=== PATIENT | male | born 1930 | race Caucasian/White ===

== ENCOUNTER 2022-04-30 10:43 | Observation (INO) | payer MEDICARE, BC ==
--- NOTE | 2022-04-30 09:34 | HP ---
DATE OF SURGERY: 04/30/2022 HISTORY OF PRESENT ILLNESS: The patient is an 89-year-old had some vomiting and nausea, not really much pain, worse the past month. He has a pacemaker. He denied any prior abdominal surgery. PAST MEDICAL HISTORY: Gastroesophageal reflux disease, hypothyroidism, hypertension, arthritis, diabetes, coronary artery disease, benign prostatic hypertrophy. PAST SURGICAL HISTORY: History of had back surgery, pacemaker and coronary stents in the past. He denied any abdominal surgery. MEDICATIONS: Atorvastatin, clopidogrel, Fenofibrate, finasteride, hydrocodone, insulin, isosorbide mononitrate, Levemir, Levothyroxine, metoprolol, losartan, omeprazole, Ozempic, Tamsulosin, Ondansetron, aspirin. ALLERGIES: AMOXICILLIN. FAMILY HISTORY: Negative in regards to this problem. SOCIAL HISTORY: No smoking or alcohol abuse. REVIEW OF SYSTEMS: Fourteen systems reviewed. No chest pain or palpitations. Other systems negative or noncontributory as above and per preadmission questionnaire. PHYSICAL EXAMINATION: GENERAL: No acute distress. HEENT: Sclerae nonicteric. NECK: No JVD. CHEST: Equal excursion, nonlabored breathing. CVS: Regular rate and rhythm. ABDOMEN: Soft. No peritoneal signs. EXTREMITIES: No significant edema. NEURO: Alert, oriented, moving extremities symmetrically. PSYCH: Appropriate mood and affect. IMPRESSION: Recurrent nausea and vomiting. He was noted to have cholelithiasis on ultrasound. Acute exacerbation of chronic cholecystitis, symptomatic cholelithiasis. I feel the patient will benefit from cholecystectomy. Risks and benefits explained the procedure in detail including but not limited to bleeding or infection, risk of trocar injury or hernia, risk of bowel, bladder or blood vessel injury, risk of bile leak, bile duct injury, retained stone or sludge possibly requiring further procedure either open or ERCP, general risk of anesthesia, deep venous thrombosis, pulmonary embolism, pneumonia, perioperative risk of aches, pains, bloating, constipation and/or loose stools possibly even chronic in nature. He understands and agrees to the planned procedure, will proceed with laparoscopic cholecystectomy with possible open as an outpatient.
[~2022-04-30 10:43] MED LIST: CLINDAMYCIN-D5W 900 MG/50 ML*** 900 MG/50 ML BAG IV SCH; Lactated Ringers 1,000 ML IV ONE; Lactated Ringers 1,000 ML IV SCH; Levofloxacin 500MG/100ML D5W 500 MG/100 ML BAG IV SCH; Sensorcaine 0.25% 10 ML ONE
[2022-04-30] MEDS ORDERED: Levofloxacin 500MG/100ML D5W 500 MG/100 ML BAG IV ONE (11:11)
[2022-04-30] MEDS ORDERED: Lactated Ringers 1,000 ML IV ONE (11:11)
[2022-04-30] MEDS ORDERED: CLINDAMYCIN-D5W 900 MG/50 ML*** 900 MG/50 ML BAG IV ONE (11:11)
[2022-04-30 11:39] LABS: Absolute Neutrophil Ct (ANC) 10.48 x10^3/uL (1.4-6.9); Basophil (Absolute #) 0.14 x10^3/uL (0-0.4); Eosinophil % 2.6 % (0.00-5.0); Eosinophil (Absolute #) 0.42 x10^3/uL (0-0.5); Hematocrit 38.4 % (42-50); Hemoglobin 12.2 g/dL (12.5-18.0); Lymphocyte (Absolute #) 3.16 x10^3/uL (1.0-4.6); Lymphocytes % 19.6 % (24.0-44.0); Mean Corpuscular Hemoglobin 30.8 pg (26-32); Mean Corpuscular Hgb Concent. 31.8 g/dL (32-36); Mean Platelet Volume 9.1 fL (7.5-11.0); Monocyte (Absolute #) 1.42 x10^3/uL (0.0-1.3); Monocytes % 8.8 % (0.0-12.0); Neutrophil % 64.8 % (36.0-66.0); Platelet Count 327 x10^3/uL (150-450); Red Blood Count 3.96 x10^6/uL (4.1-5.6); Red Cell Distribution Width 15.5 % (11.5-14.0); White Blood Count 16.2 x10^3/uL (4.0-10.5)
[2022-04-30 11:50] LABS: ANION GAP 11.9 MEQ/L (5-15); Calcium 9.3 mg/dL (8.4-10.2); Creatinine 1 1.35 mg/dL (0.66-1.25); EST GLOMERULAR FILTRATION RATE 52.9 ML/MIN; Potassium 4.6 mmol/L (3.5-5.1)
[2022-04-30] MEDS ORDERED: OFIRMEV 100 ML IV ONE (14:03)
[2022-04-30] MEDS ORDERED: Pre-Attached Lta Kit TP ONE (14:03)
[2022-04-30] MEDS ORDERED: DIPRIVAN 200 MG/20 ML IV ONE (14:06)
[2022-04-30] MEDS ORDERED: PHENYLEPHRINE HCL ONE (14:06)
[2022-04-30] MEDS ORDERED: Quelicin Fliptop 200 MG/10 ML ONE (14:06)
[2022-04-30] MEDS ORDERED: Xylocaine-Mpf 2% 5 Ml Vial ONE (14:06)
[2022-04-30] MEDS ORDERED: Zofran 4 MG/2 ML VIAL ONE (14:06)
[2022-04-30] MEDS ORDERED: Zemuron 100 MG/10 ML ONE (14:06)
[2022-04-30] MEDS ORDERED: Decadron 4 MG INJ ONE (14:06)
[2022-04-30] MEDS ORDERED: SUBLIMAZE 100 MCG/2 ML ONE ×2 (14:07→15:59)
[2022-04-30] MEDS ORDERED: TYLENOL 325 MG PO PRN (16:45)
[2022-04-30] MEDS ORDERED: Zofran 4 MG/2 ML VIAL IV PRN (16:45)
[2022-04-30 16:50] LABS: INFLUENZA A NEGATIVE (NEGATIVE); INFLUENZA B NEGATIVE (NEGATIVE); RESPIRATORY SYNCTIAL VIRUS NEGATIVE (Negative); SARS-CoV-2 Xpert Express NEGATIVE (NEGATIVE)
[2022-04-30] MEDS ORDERED: NORCO 5/325 MG PO PRN (17:01)
[2022-04-30] MEDS ORDERED: MORPHINE SULFATE 2 MG INJ IV PRN ×2 (17:05→17:15)
--- NOTE | 2022-04-30 17:08 | PCM.HP ---
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 He was seen on the floor, currently on a nasal canula and states his breathing is much improved, he has some mild pain in the abdomen but is alert, oriented and answering questions appropriately, no chest pain, no shortness of breath currently. - Review of Systems Constitutional: No Fever, No Chills Respiratory: Short Of Breath (improving) Cardiac: No Chest Pain, No Edema, No Syncope Abdominal/Gastrointestinal: Abdominal Pain (postop), No Nausea, No Vomiting, No Diarrhea Genitourinary Symptoms: No Symptoms Skin: No Rash Medications & Allergies Home Medications: Home Medication List Aspirin [Low Dose Aspirin EC] 81 mg PO DAILY 04/25/22 [History Confirmed 04/30/22] Atorvastatin Calcium [Lipitor 40Mg] 40 mg PO DAILY 04/25/22 [History Confirmed 04/30/22] Clopidogrel Bisulfate [Clopidogrel] 75 mg PO DAILY 04/25/22 [History Confirmed 04/30/22] Fenofibrate Nanocrystallized [Tricor] 145 mg PO DAILY 04/25/22 [History Confirmed 04/30/22] Finasteride 5 mg [Proscar 5 MG] 5 mg PO DAILY 04/25/22 [History Confirmed 04/30/22] Hydrocodone/Acetaminophen [Hydrocodone-Acetamin 10-325 mg] 1 each PO Q6HPRN PRN 04/25/22 [History Confirmed 04/30/22] Insulin Aspart [Insulin Aspart Flexpen] 0 unit SQ UD 04/25/22 [History Confirmed 04/30/22] Insulin Detemir [Levemir] 50 unit SQ BID 04/25/22 [History Confirmed 04/30/22] Isosorbide Mononitrate [Isosorbide Mononitrate ER] 30 mg PO DAILY 04/25/22 [History Confirmed 04/30/22] Levothyroxine Sodium [Levothyroxine] 125 mcg PO DAILY 04/25/22 [History Confirmed 04/30/22] Losartan Potassium [Cozaar] 25 mg PO DAILY 04/25/22 [History Confirmed 04/30/22] Metoprolol Tartrate 25 mg [Lopressor 25MG Tab] 25 mg PO BID 04/25/22 [History Confirmed 04/30/22] Omeprazole 20 mg PO DAILY 04/25/22 [History Confirmed 04/30/22] Ondansetron [Ondansetron Odt ] 4 mg PO Q6H PRN 04/25/22 [History Confirmed 04/30/22] Semaglutide [Ozempic] 0.5 mg SQ WEEKLY 04/25/22 [History Confirmed 04/30/22] Tamsulosin HCl 0.4 mg [Flomax 0.4 MG] 0.4 mg PO DAILY 04/25/22 [History Confirmed 04/30/22] Hydrocodone/Acetaminophen [Hydrocodone-Acetamin 5-325 mg] 1 tab PO Q4HPRN PRN #20 tablet MDD 6 04/30/22 [Rx] Allergies/Adverse Reactions: Allergies Allergy/AdvReac Type Severity Reaction Status Date / Time amoxicillin Allergy Severe Hives Verified 04/30/22 11:06 - Past Medical History Past Medical History: Yes Neurological History: No Pertinent History ENT History: No Pertinent History Cardiac History: High Cholesterol, Hypertension, Other Respiratory History: No Pertinent History Endocrine Medical History: Diabetes Type II, Hypothyroidism Musculoskelatal History: No Pertinent History GI Medical History: GERD History: No Pertinent History Pyscho-Social History: No Pertinent History Male Reproductive Disorders: No Pertinent History Comment: pacemaker - Past Surgical History Past Surgical History: Yes Neuro Surgical History: No Pertinent History Cardiac History: Cardiac Catheterization, Pacemaker Respiratory Surgery: No Pertinent History GI Surgical History: No Pertinent History Genitourinary Surgical Hx: No Pertinent History Musculskeletal Surgical Hx: Other Male Surgical History: No Pertinent History Other Surgical History: back surgery - Social History Smoking Status: Former smoker Alcohol: None Drug Use: none - Physical Exam Vital Signs: Vital Signs - 24 hr Temp Pulse Resp BP Pulse Ox 04/30/22 16:54 98 04/30/22 16:52 97.5 F 68 19 169/75 99 04/30/22 11:32 97.5 F 66 18 149/59 97 04/30/22 11:15 97.5 F 66 18 149/59 97 General Appearance: no apparent distress Neurologic Exam: alert, oriented x 3, cooperative Respiratory Exam: normal breath sounds, lungs clear, diminished breath sounds, No respiratory distress, No accessory muscle use Cardiovascular Exam: regular rate/rhythm, normal heart sounds, normal peripheral pulses Gastrointestinal/Abdomen Exam: soft, normal bowel sounds, other (dressings clean, dry, intact), No tenderness, No mass Extremity Exam: normal inspection, normal range of motion, pelvis stable Skin Exam: normal color, warm, dry, No rash Results - Labs Lab/Micro Results: Lab Results-Last 24 Hours 04/30/22 04/30/22 04/30/22 Range/Units 11:00 11:00 11:06 WBC 16.2 H (4.0-10.5) x10^3/uL RBC 3.96 L (4.1-5.6) x10^6/uL Hgb 12.2 L (12.5-18.0) g/dL Hct 38.4 L (42-50) % MCV 97.0 (78-100) fL MCH 30.8 (26-32) pg MCHC 31.8 L (32-36) g/dL RDW 15.5 H (11.5-14.0) % Plt Count 327 (150-450) x10^3/uL MPV 9.1 (7.5-11.0) fL Gran % 64.8 (36.0-66.0) % Immature Gran % (Auto) 3.3 H (0.00-0.4) % Nucleat RBC Rel Count 0.0 (0.00-0.1) % Eos # (Auto) 0.42 (0-0.5) x10^3/uL Immature Gran # (Auto) 0.54 H (0.00-0.03) x10^3u/L Absolute Lymphs (auto) 3.16 (1.0-4.6) x10^3/uL Absolute Monos (auto) 1.42 H (0.0-1.3) x10^3/uL Absolute Nucleated RBC 0.00 (0.00-0.01) x10^3u/L Lymphocytes % 19.6 L (24.0-44.0) % Monocytes % 8.8 (0.0-12.0) % Eosinophils % 2.6 (0.00-5.0) % Basophils % 0.9 (0.0-0.4) % Absolute Granulocytes 10.48 H (1.4-6.9) x10^3/uL Basophils # 0.14 (0-0.4) x10^3/uL Sodium 138 (137-145) mmol/L Potassium 4.6 (3.5-5.1) mmol/L Chloride 104 (98-107) mmol/L Carbon Dioxide 26 (22-30) mmol/L Anion Gap 11.9 (5-15) MEQ/L BUN 23 H (9-20) mg/dL Creatinine 1.35 H (0.66-1.25) mg/dL Estimated GFR 52.9 ML/MIN Glucose 89 (74-106) mg/dL POC Glucometer 88 (74 to 106) mg/dL Calcium 9.3 (8.4-10.2) mg/dL Influenza Type A Ag (NEGATIVE) Influenza Type B Ag (NEGATIVE) RSV (PCR) (Negative) SARS-CoV-2 (PCR) (NEGATIVE) 04/30/22 04/30/22 04/30/22 Range/Units 12:24 15:11 16:08 WBC (4.0-10.5) x10^3/uL RBC (4.1-5.6) x10^6/uL Hgb (12.5-18.0) g/dL Hct (42-50) % MCV (78-100) fL MCH (26-32) pg MCHC (32-36) g/dL RDW (11.5-14.0) % Plt Count (150-450) x10^3/uL MPV (7.5-11.0) fL Gran % (36.0-66.0) % Immature Gran % (Auto) (0.00-0.4) % Nucleat RBC Rel Count (0.00-0.1) % Eos # (Auto) (0-0.5) x10^3/uL Immature Gran # (Auto) (0.00-0.03) x10^3u/L Absolute Lymphs (auto) (1.0-4.6) x10^3/uL Absolute Monos (auto) (0.0-1.3) x10^3/uL Absolute Nucleated RBC (0.00-0.01) x10^3u/L Lymphocytes % (24.0-44.0) % Monocytes % (0.0-12.0) % Eosinophils % (0.00-5.0) % Basophils % (0.0-0.4) % Absolute Granulocytes (1.4-6.9) x10^3/uL Basophils # (0-0.4) x10^3/uL Sodium (137-145) mmol/L Potassium (3.5-5.1) mmol/L Chloride (98-107) mmol/L Carbon Dioxide (22-30) mmol/L Anion Gap (5-15) MEQ/L BUN (9-20) mg/dL Creatinine (0.66-1.25) mg/dL Estimated GFR ML/MIN Glucose (74-106) mg/dL POC Glucometer 81 87 (74 to 106) mg/dL Calcium (8.4-10.2) mg/dL Influenza Type A Ag NEGATIVE (NEGATIVE) Influenza Type B Ag NEGATIVE (NEGATIVE) RSV (PCR) NEGATIVE (Negative) SARS-CoV-2 (PCR) NEGATIVE (NEGATIVE) - Radiology Impressions Radiology Exams & Impressions: Radiology Procedures Category Date Time Status CHEST 1 VIEW (PORTABLE) Routine Exams 04/30/22 16:44 Ordered - Other Procedures and Tests Respiratory Therapy 04/30/22 16:05 BiPap/CPAP STAT 04/30/22 16:52 Oxygen Nasal Cannula 3 lpm Assessment/Plan (1) Acute respiratory distress Current Visit: Yes Status: Acute Assessment & Plan: stable on nasal cannula, chest xray pending. no wheezing or crackles on exam. will monitor closely tonight but suspect continued improval with time. Code(s): R06.03 - ACUTE RESPIRATORY DISTRESS (2) Prolonged emergence from general anesthesia Current Visit: Yes Status: Acute Code(s): T88.59XA - OTHER COMPLICATIONS OF ANESTHESIA, INITIAL ENCOUNTER (3) S/P cholecystectomy Current Visit: Yes Status: Acute Code(s): Z90.49 - ACQUIRED ABSENCE OF OTHER SPECIFIED PARTS OF DIGESTIVE TRACT (4) Type 2 diabetes mellitus Current Visit: Yes Status: Acute Assessment & Plan: sliding scale coverage ordered, currently on levemir 50U bid at home, will give 10 units lantus this evening as he is ordered regular diet per surgeon (5) Coronary artery disease Current Visit: Yes Status: Acute Assessment & Plan: continue beta bobby and aspirin/plavix Code(s): I25.10 - ATHSCL HEART DISEASE OF [place] CORONARY ARTERY W/O ANG PCTRS
--- NOTE | 2022-04-30 17:17 | XRAY ---
Indication: Postop hypoventilation. Comparison: None Portable chest demonstrates mild left infrahilar infiltrate versus atelectasis and minimal right midlung discoid atelectasis. Remaining heart and lungs unremarkable with left pacemaker. Bony thorax intact with osteopenia, degenerative changes, and partially visualized epidural stimulator leads.
[2022-04-30] MEDS: NORCO 5/325 MG PO PRN (19:22)
[2022-04-30] MEDS: Lopressor 25MG Tab PO SCH (21:19)
[2022-04-30] MEDS: HUMALOG SQ PRN ×2 (21:41→21:48)
[2022-05-01] MEDS: NORCO 5/325 MG PO PRN ×4 (02:48→23:24)
[2022-05-01 05:17] LABS: Absolute Neutrophil Ct (ANC) 16.68 x10^3/uL (1.4-6.9); Basophil (Absolute #) 0.08 x10^3/uL (0-0.4); Eosinophil % 0.2 % (0.00-5.0); Eosinophil (Absolute #) 0.04 x10^3/uL (0-0.5); Hematocrit 34.6 % (42-50); Lymphocyte (Absolute #) 2.24 x10^3/uL (1.0-4.6); Lymphocytes % 10.7 % (24.0-44.0); Mean Cell Volume 97.5 fL (78-100); Mean Corpuscular Hgb Concent. 31.8 g/dL (32-36); Mean Platelet Volume 9.3 fL (7.5-11.0); Monocyte (Absolute #) 1.56 x10^3/uL (0.0-1.3); Monocytes % 7.4 % (0.0-12.0); Neutrophil % 79.4 % (36.0-66.0); Platelet Count 321 x10^3/uL (150-450); Red Blood Count 3.55 x10^6/uL (4.1-5.6); Red Cell Distribution Width 15.5 % (11.5-14.0)
[2022-05-01 05:52] LABS: ANION GAP 10.2 MEQ/L (5-15); BILIRUBIN,TOTAL 0.6 mg/dL (0.2-1.3); Calcium 8.5 mg/dL (8.4-10.2); Creatinine 1 1.23 mg/dL (0.66-1.25); EST GLOMERULAR FILTRATION RATE 58.9 ML/MIN; MAGNESIUM 1.7 mg/dL (1.6-2.3); Potassium 4.6 mmol/L (3.5-5.1); Total Protein 6.3 g/dL (6.3-8.2)
[2022-05-01 06:00] LABS: Slide Review 1 YES
--- NOTE | 2022-05-01 08:36 | OP ---
SURGERY DATE/TIME: 04/30/2022 2157 PREOPERATIVE DIAGNOSIS: Acute exacerbation of chronic cholecystitis, intractable nausea and vomiting, cholelithiasis. POSTOPERATIVE DIAGNOSIS: Mild chronic cholecystitis, cholelithiasis. PROCEDURE: Laparoscopic cholecystectomy. SURGEON: Dr. Tres Shearer. ANESTHESIA: General. ESTIMATED BLOOD LOSS: Minimal. INDICATIONS: As noted above. Risks and benefits explained in detail but not limited to and consent obtained. DESCRIPTION OF PROCEDURE AND FINDINGS: The patient was taken to the operating room. General anesthesia induced. Prepped and draped in the usual sterile fashion. After official time out and no disagreement with planned procedure, a transverse incision made at the supraumbilical area. Fascia grasped and pulled upward. Veress needle inserted and tested with saline. Pneumoperitoneum accomplished insufflating opening pressure of 0-15. A 5 mm bladeless port and camera were inserted without difficulty followed by two - 5 mm right upper quadrant ports and 11 mm epigastric port. The gallbladder is grasped. It had some mild chronic inflammatory reaction. Dissected posterior lateral to anterior fashion. Slowly and carefully the cystic duct, infundibular area, main cystic artery isolated until critical view obtained both anteriorly and posteriorly. Once this is accomplished, the cystic duct and cystic artery clipped x3 and divided in the usual fashion. The gallbladder slowly and carefully dissected free from its dense attachment to liver bed staying directly on the gallbladder wall clipping additional oozing side branches off the cystic artery and cystic vein directly on the gallbladder wall as necessary. Just prior to releasing from final attachments to the anterior edge of the liver, one of the graspers tore a small pinhole in the gallbladder spilling a small amount of bile. There were no visible stone spillage. The gallbladder was suctioned free. Just prior to releasing the final attachments to anterior edge of the liver, liver bed re-inspected. Clips noted in place in cystic duct and cystic artery stumps. No signs of any active or bile leakage from the liver bed itself. The clips were noted to be in place on the cystic duct and cystic artery stump. The gallbladder was released from its final attachments to the anterior edge of the liver, placed in the provided sac, pulled up into the epigastric wound where regarding the stones it was necessary to slightly enlarge the fascial defect with a clamp to allow the gallbladder, stones and bag to be pulled free and passed off. This fascial defect closed with puncture closure device with #1 Vicryl. Copious amount of irrigation accomplished lateral to the liver and subhepatic space irrigating clear. The liver bed re-inspected. Clips noted in place cystic duct and cystic artery stumps. No signs of any active bleeding or bile leakage. It was felt there was no need for drain placement. The liver itself looked smooth with no obvious abnormal nodules. The superficial anatomy of the abdomen was fairly unremarkable. No signs of any other gross causes of his nausea or vomiting. Copious amount of irrigation accomplished lateral to the liver and subhepatic space irrigating clear. Pneumoperitoneum decompressed. The wound irrigated out. Skin incision closed with 4-0 Vicryl. Steri-Strips and sterile dressing applied. The patient tolerated the procedure well. There were no immediate complications. Findings discussed with the family out in the waiting area. Anesthesia is working on waking the patient up at this time. Please see the anesthesia notes.
--- NOTE | 2022-05-01 08:48 | PCM.NOTE ---
Date and Time: 05/01/22840 Subjective Assessment: Pt started c/o chest pain last night, then again this morning. 6-05/13. Had few episodes of diaphoresis. Breathing is good this morning. Abd is sore, but doing ok on meds. Pt is ying po. Is urinating "like usual," has some urinary issues and appt is set up with urology. Has not passed flatus. - Review of Systems Constitutional: No Fever Ears, Nose, & Throat: Nose Congestion Respiratory: Cough (for the past 1 mo) Cardiac: Chest Pain Abdominal/Gastrointestinal: Nausea Objective Exam General Appearance: no apparent distress, alert Neurologic Exam: oriented x 3, cooperative Skin Exam: normal color, warm, dry, No rash Wound Assessment: Skin/Wound Assessment Wound/Incision Assessment Start: 04/30/22 19:32 Text: Status: Active Freq: Q6H Protocol: Document 05/01/22 02:00 JUDITH (Rec: 05/01/22 02:50 JUDITH [id number]) Wound/Incision Assessment Lower Abdomen Wound Assessment Shift Assessment Wound Type Incision Wound Stage Non Pressure Wound Dressing Status Dry & Intact Drainage Amount None Primary Dressing Gauze Pads Secondary Dressing TEGADERM Comment 4 PUNCTURE SITES NOTED FROM SURGERY Wound Photo Photo Taken No Neck Exam: normal inspection Respiratory Exam: normal breath sounds, lungs clear, No crackles/rales, No rhonchi, No wheezing Cardiovascular Exam: regular rate/rhythm, normal heart sounds, No murmur Gastrointestinal/Abdomen Exam: soft, normal bowel sounds, distention, other (surgical laparoscopic wounds covered; dressings are clean and dry.), No tenderness, No mass, No guarding, No rebound Extremity Exam: normal inspection Back Exam: normal inspection, No rash OBJECTIVE DATA Vital Signs: Vital Signs - 24 hr Temp Pulse Resp BP Pulse Ox 05/01/22 08:00 96.4 F 68 19 152/62 94 L 05/01/22 07:44 97 05/01/22 04:00 68 05/01/22 03:22 97.1 F 66 16 165/60 97 05/01/22 00:01 79 05/01/22 00:00 98.8 F 67 22 158/55 97 04/30/22 20:31 63 154/76 04/30/22 20:00 69 04/30/22 19:05 98.0 F 69 18 169/75 100 04/30/22 18:54 99 04/30/22 16:54 98 04/30/22 16:52 97.5 F 68 19 169/75 99 04/30/22 11:32 97.5 F 66 18 149/59 97 04/30/22 11:15 97.5 F 66 18 149/59 97 Pain Assessment - Last Documented Pain Intensity 7 Pain Scale Used 0-10 Pain Scale Intake and Output: Intake & Output 04/28/22 04/29/22 04/30/22 05/01/22 11:59 11:59 11:59 11:59 Intake Total 0 0 360 Balance 0 0 360 Weight 91.3 kg 76.6 kg Lab Results: Lab Results-Last 24 Hours 04/30/22 04/30/22 04/30/22 Range/Units 11:00 11:00 11:06 WBC 16.2 H (4.0-10.5) x10^3/uL RBC 3.96 L (4.1-5.6) x10^6/uL Hgb 12.2 L (12.5-18.0) g/dL Hct 38.4 L (42-50) % MCV 97.0 (78-100) fL MCH 30.8 (26-32) pg MCHC 31.8 L (32-36) g/dL RDW 15.5 H (11.5-14.0) % Plt Count 327 (150-450) x10^3/uL MPV 9.1 (7.5-11.0) fL Gran % 64.8 (36.0-66.0) % Immature Gran % (Auto) 3.3 H (0.00-0.4) % Nucleat RBC Rel Count 0.0 (0.00-0.1) % Eos # (Auto) 0.42 (0-0.5) x10^3/uL Immature Gran # (Auto) 0.54 H (0.00-0.03) x10^3u/L Absolute Lymphs (auto) 3.16 (1.0-4.6) x10^3/uL Absolute Monos (auto) 1.42 H (0.0-1.3) x10^3/uL Absolute Nucleated RBC 0.00 (0.00-0.01) x10^3u/L Lymphocytes % 19.6 L (24.0-44.0) % Monocytes % 8.8 (0.0-12.0) % Eosinophils % 2.6 (0.00-5.0) % Basophils % 0.9 (0.0-0.4) % Absolute Granulocytes 10.48 H (1.4-6.9) x10^3/uL Basophils # 0.14 (0-0.4) x10^3/uL Sodium 138 (137-145) mmol/L Potassium 4.6 (3.5-5.1) mmol/L Chloride 104 (98-107) mmol/L Carbon Dioxide 26 (22-30) mmol/L Anion Gap 11.9 (5-15) MEQ/L BUN 23 H (9-20) mg/dL Creatinine 1.35 H (0.66-1.25) mg/dL Estimated GFR 52.9 ML/MIN Glucose 89 (74-106) mg/dL POC Glucometer 88 (74 to 106) mg/dL Calcium 9.3 (8.4-10.2) mg/dL Magnesium (1.6-2.3) mg/dL Total Bilirubin (0.2-1.3) mg/dL AST (17-59) U/L ALT (0-50) U/L Alkaline Phosphatase (38-126) U/L Troponin I (0.000-0.034) ng/mL Serum Total Protein (6.3-8.2) g/dL Albumin (3.5-5.0) g/dL Prealbumin (17.6-36.0) mg/dL Influenza Type A Ag (NEGATIVE) Influenza Type B Ag (NEGATIVE) RSV (PCR) (Negative) SARS-CoV-2 (PCR) (NEGATIVE) Slides for Path Review 04/30/22 04/30/22 04/30/22 Range/Units 12:24 15:11 16:08 WBC (4.0-10.5) x10^3/uL RBC (4.1-5.6) x10^6/uL Hgb (12.5-18.0) g/dL Hct (42-50) % MCV (78-100) fL MCH (26-32) pg MCHC (32-36) g/dL RDW (11.5-14.0) % Plt Count (150-450) x10^3/uL MPV (7.5-11.0) fL Gran % (36.0-66.0) % Immature Gran % (Auto) (0.00-0.4) % Nucleat RBC Rel Count (0.00-0.1) % Eos # (Auto) (0-0.5) x10^3/uL Immature Gran # (Auto) (0.00-0.03) x10^3u/L Absolute Lymphs (auto) (1.0-4.6) x10^3/uL Absolute Monos (auto) (0.0-1.3) x10^3/uL Absolute Nucleated RBC (0.00-0.01) x10^3u/L Lymphocytes % (24.0-44.0) % Monocytes % (0.0-12.0) % Eosinophils % (0.00-5.0) % Basophils % (0.0-0.4) % Absolute Granulocytes (1.4-6.9) x10^3/uL Basophils # (0-0.4) x10^3/uL Sodium (137-145) mmol/L Potassium (3.5-5.1) mmol/L Chloride (98-107) mmol/L Carbon Dioxide (22-30) mmol/L Anion Gap (5-15) MEQ/L BUN (9-20) mg/dL Creatinine (0.66-1.25) mg/dL Estimated GFR ML/MIN Glucose (74-106) mg/dL POC Glucometer 81 87 (74 to 106) mg/dL Calcium (8.4-10.2) mg/dL Magnesium (1.6-2.3) mg/dL Total Bilirubin (0.2-1.3) mg/dL AST (17-59) U/L ALT (0-50) U/L Alkaline Phosphatase (38-126) U/L Troponin I (0.000-0.034) ng/mL Serum Total Protein (6.3-8.2) g/dL Albumin (3.5-5.0) g/dL Prealbumin (17.6-36.0) mg/dL Influenza Type A Ag NEGATIVE (NEGATIVE) Influenza Type B Ag NEGATIVE (NEGATIVE) RSV (PCR) NEGATIVE (Negative) SARS-CoV-2 (PCR) NEGATIVE (NEGATIVE) Slides for Path Review 04/30/22 04/30/22 04/30/22 Range/Units 17:44 19:49 19:55 WBC (4.0-10.5) x10^3/uL RBC (4.1-5.6) x10^6/uL Hgb (12.5-18.0) g/dL Hct (42-50) % MCV (78-100) fL MCH (26-32) pg MCHC (32-36) g/dL RDW (11.5-14.0) % Plt Count (150-450) x10^3/uL MPV (7.5-11.0) fL Gran % (36.0-66.0) % Immature Gran % (Auto) (0.00-0.4) % Nucleat RBC Rel Count (0.00-0.1) % Eos # (Auto) (0-0.5) x10^3/uL Immature Gran # (Auto) (0.00-0.03) x10^3u/L Absolute Lymphs (auto) (1.0-4.6) x10^3/uL Absolute Monos (auto) (0.0-1.3) x10^3/uL Absolute Nucleated RBC (0.00-0.01) x10^3u/L Lymphocytes % (24.0-44.0) % Monocytes % (0.0-12.0) % Eosinophils % (0.00-5.0) % Basophils % (0.0-0.4) % Absolute Granulocytes (1.4-6.9) x10^3/uL Basophils # (0-0.4) x10^3/uL Sodium (137-145) mmol/L Potassium (3.5-5.1) mmol/L Chloride (98-107) mmol/L Carbon Dioxide (22-30) mmol/L Anion Gap (5-15) MEQ/L BUN (9-20) mg/dL Creatinine (0.66-1.25) mg/dL Estimated GFR ML/MIN Glucose (74-106) mg/dL POC Glucometer 126 H (74 to 106) mg/dL Calcium (8.4-10.2) mg/dL Magnesium (1.6-2.3) mg/dL Total Bilirubin (0.2-1.3) mg/dL AST (17-59) U/L ALT (0-50) U/L Alkaline Phosphatase (38-126) U/L Troponin I < 0.012 (0.000-0.034) ng/mL Serum Total Protein (6.3-8.2) g/dL Albumin (3.5-5.0) g/dL Prealbumin 17.70 (17.6-36.0) mg/dL Influenza Type A Ag (NEGATIVE) Influenza Type B Ag (NEGATIVE) RSV (PCR) (Negative) SARS-CoV-2 (PCR) (NEGATIVE) Slides for Path Review 04/30/22 04/30/22 05/01/22 Range/Units 21:16 22:25 01:30 WBC (4.0-10.5) x10^3/uL RBC (4.1-5.6) x10^6/uL Hgb (12.5-18.0) g/dL Hct (42-50) % MCV (78-100) fL MCH (26-32) pg MCHC (32-36) g/dL RDW (11.5-14.0) % Plt Count (150-450) x10^3/uL MPV (7.5-11.0) fL Gran % (36.0-66.0) % Immature Gran % (Auto) (0.00-0.4) % Nucleat RBC Rel Count (0.00-0.1) % Eos # (Auto) (0-0.5) x10^3/uL Immature Gran # (Auto) (0.00-0.03) x10^3u/L Absolute Lymphs (auto) (1.0-4.6) x10^3/uL Absolute Monos (auto) (0.0-1.3) x10^3/uL Absolute Nucleated RBC (0.00-0.01) x10^3u/L Lymphocytes % (24.0-44.0) % Monocytes % (0.0-12.0) % Eosinophils % (0.00-5.0) % Basophils % (0.0-0.4) % Absolute Granulocytes (1.4-6.9) x10^3/uL Basophils # (0-0.4) x10^3/uL Sodium (137-145) mmol/L Potassium (3.5-5.1) mmol/L Chloride (98-107) mmol/L Carbon Dioxide (22-30) mmol/L Anion Gap (5-15) MEQ/L BUN (9-20) mg/dL Creatinine (0.66-1.25) mg/dL Estimated GFR ML/MIN Glucose (74-106) mg/dL POC Glucometer 256 H (74 to 106) mg/dL Calcium (8.4-10.2) mg/dL Magnesium (1.6-2.3) mg/dL Total Bilirubin (0.2-1.3) mg/dL AST (17-59) U/L ALT (0-50) U/L Alkaline Phosphatase (38-126) U/L Troponin I < 0.012 0.014 (0.000-0.034) ng/mL Serum Total Protein (6.3-8.2) g/dL Albumin (3.5-5.0) g/dL Prealbumin (17.6-36.0) mg/dL Influenza Type A Ag (NEGATIVE) Influenza Type B Ag (NEGATIVE) RSV (PCR) (Negative) SARS-CoV-2 (PCR) (NEGATIVE) Slides for Path Review 05/01/22 05/01/22 05/01/22 Range/Units 04:30 04:30 04:30 WBC 21.0 H (4.0-10.5) x10^3/uL RBC 3.55 L (4.1-5.6) x10^6/uL Hgb 11.0 L (12.5-18.0) g/dL Hct 34.6 L (42-50) % MCV 97.5 (78-100) fL MCH 31.0 (26-32) pg MCHC 31.8 L (32-36) g/dL RDW 15.5 H (11.5-14.0) % Plt Count 321 (150-450) x10^3/uL MPV 9.3 (7.5-11.0) fL Gran % 79.4 H (36.0-66.0) % Immature Gran % (Auto) 1.9 H (0.00-0.4) % Nucleat RBC Rel Count 0.0 (0.00-0.1) % Eos # (Auto) 0.04 (0-0.5) x10^3/uL Immature Gran # (Auto) 0.39 H (0.00-0.03) x10^3u/L Absolute Lymphs (auto) 2.24 (1.0-4.6) x10^3/uL Absolute Monos (auto) 1.56 H (0.0-1.3) x10^3/uL Absolute Nucleated RBC 0.00 (0.00-0.01) x10^3u/L Lymphocytes % 10.7 L (24.0-44.0) % Monocytes % 7.4 (0.0-12.0) % Eosinophils % 0.2 (0.00-5.0) % Basophils % 0.4 (0.0-0.4) % Absolute Granulocytes 16.68 H (1.4-6.9) x10^3/uL Basophils # 0.08 (0-0.4) x10^3/uL Sodium 133 L (137-145) mmol/L Potassium 4.6 (3.5-5.1) mmol/L Chloride 102 (98-107) mmol/L Carbon Dioxide 26 (22-30) mmol/L Anion Gap 10.2 (5-15) MEQ/L BUN 22 H (9-20) mg/dL Creatinine 1.23 (0.66-1.25) mg/dL Estimated GFR 58.9 ML/MIN Glucose 200 H (74-106) mg/dL POC Glucometer (74 to 106) mg/dL Calcium 8.5 (8.4-10.2) mg/dL Magnesium 1.7 (1.6-2.3) mg/dL Total Bilirubin 0.60 (0.2-1.3) mg/dL AST 30 (17-59) U/L ALT 20 (0-50) U/L Alkaline Phosphatase 37 L (38-126) U/L Troponin I 0.022 (0.000-0.034) ng/mL Serum Total Protein 6.3 (6.3-8.2) g/dL Albumin 3.0 L (3.5-5.0) g/dL Prealbumin (17.6-36.0) mg/dL Influenza Type A Ag (NEGATIVE) Influenza Type B Ag (NEGATIVE) RSV (PCR) (Negative) SARS-CoV-2 (PCR) (NEGATIVE) Slides for Path Review YES 05/01/22 05/01/22 Range/Units 07:22 07:25 WBC (4.0-10.5) x10^3/uL RBC (4.1-5.6) x10^6/uL Hgb (12.5-18.0) g/dL Hct (42-50) % MCV (78-100) fL MCH (26-32) pg MCHC (32-36) g/dL RDW (11.5-14.0) % Plt Count (150-450) x10^3/uL MPV (7.5-11.0) fL Gran % (36.0-66.0) % Immature Gran % (Auto) (0.00-0.4) % Nucleat RBC Rel Count (0.00-0.1) % Eos # (Auto) (0-0.5) x10^3/uL Immature Gran # (Auto) (0.00-0.03) x10^3u/L Absolute Lymphs (auto) (1.0-4.6) x10^3/uL Absolute Monos (auto) (0.0-1.3) x10^3/uL Absolute Nucleated RBC (0.00-0.01) x10^3u/L Lymphocytes % (24.0-44.0) % Monocytes % (0.0-12.0) % Eosinophils % (0.00-5.0) % Basophils % (0.0-0.4) % Absolute Granulocytes (1.4-6.9) x10^3/uL Basophils # (0-0.4) x10^3/uL Sodium (137-145) mmol/L Potassium (3.5-5.1) mmol/L Chloride (98-107) mmol/L Carbon Dioxide (22-30) mmol/L Anion Gap (5-15) MEQ/L BUN (9-20) mg/dL Creatinine (0.66-1.25) mg/dL Estimated GFR ML/MIN Glucose (74-106) mg/dL POC Glucometer 178 H (74 to 106) mg/dL Calcium (8.4-10.2) mg/dL Magnesium (1.6-2.3) mg/dL Total Bilirubin (0.2-1.3) mg/dL AST (17-59) U/L ALT (0-50) U/L Alkaline Phosphatase (38-126) U/L Troponin I 0.015 (0.000-0.034) ng/mL Serum Total Protein (6.3-8.2) g/dL Albumin (3.5-5.0) g/dL Prealbumin (17.6-36.0) mg/dL Influenza Type A Ag (NEGATIVE) Influenza Type B Ag (NEGATIVE) RSV (PCR) (Negative) SARS-CoV-2 (PCR) (NEGATIVE) Slides for Path Review Radiology Exams: Radiology Procedures Category Date Time Status CHEST 1 VIEW (PORTABLE) Routine Exams 04/30/22 16:44 Completed CHEST 1 VIEW (PORTABLE) Stat Exams 05/01/22 08:34 Ordered Multi-Disciplinary Progress Notes: Multi-Disciplinary Progress Notes 04/30/22 19:51 Respiratory Note by Jayashree Plummer RT called to patient bedside for patient complaints of chest pain. Patient's vitals are as follows HR 73, RR 18, SpO2 99% on 3L nasal cannula. No retractions noted and patient is able to speak without experiencing SOB. Breathsounds are clear throughout. EKG completed per MD order. No further respiratory interventions indicated at this time. Initialized on 04/30/22 19:51 - END OF NOTE Assessment/Plan (1) Chest pain Current Visit: Yes Status: Acute Qualifiers: Chest pain type: unspecified Qualified Code(s): R07.9 - Chest pain, unspecified Assessment & Plan: Could be post surgical, or related to pneumonia. However, ruling out cardiac issues. Troponins have been neg x 5 since last night. His EKG shows widened QRS with nonspecific ST changes - I'm unsure of the chronicity of this as the last EKG we have is from 2013. I have requested an EKG from Dr. Cordova's office; however, Dr. Cordova is out of town so I will have to discuss with Dr. Matthew Joyce if necessary. Code(s): R07.9 - CHEST PAIN, UNSPECIFIED (2) Pneumonia Current Visit: Yes Status: Acute Qualifiers: Pneumonia type: due to unspecified organism Laterality: left Lung location: lower lobe of lung Qualified Code(s): J18.9 - Pneumonia, unspecified organism Assessment & Plan: Pt states now that he's had congestion and cough for 1 mo. CXR with L infrahilar infiltrate v atelectasis; will tx for PNA. If PNA, could be pre- existing, which could help explain the difficulty with extubating post surgery yesterday. Has elevated WBC. Check pro-calcitonin today. Code(s): J18.9 - PNEUMONIA, UNSPECIFIED ORGANISM (3) S/P cholecystectomy Current Visit: Yes Status: Acute Code(s): Z90.49 - ACQUIRED ABSENCE OF OTHER SPECIFIED PARTS OF DIGESTIVE TRACT (4) Type 2 diabetes mellitus Current Visit: Yes Status: Chronic (5) Coronary artery disease Current Visit: Yes Status: Chronic Code(s): I25.10 - ATHSCL HEART DISEASE OF [place] CORONARY ARTERY W/O ANG PCTRS (6) Leukocytosis Current Visit: Yes Status: Acute Qualifiers: Leukocytosis type: unspecified Qualified Code(s): D72.829 - Elevated white blood cell count, unspecified Assessment & Plan: 21,000 today. recheck in a.m. Code(s): D72.829 - ELEVATED WHITE BLOOD CELL COUNT, UNSPECIFIED
[2022-05-01] MEDS: HUMALOG SQ PRN ×3 (08:49→21:02)
--- NOTE | 2022-05-01 08:54 | XRAY ---
Indication: Chest pain. Pneumonia. Comparison: April 30, 2022. Portable chest demonstrates minimal improving left infrahilar infiltrate/atelectasis and right midlung discoid atelectasis which still persists. Remaining heart and lungs unremarkable again with incidental left pacemaker and partially visualized epidural stimulator leads.
[2022-05-01] MEDS: PLAVIX Tablet PO SCH (10:11)
[2022-05-01] MEDS: ROCEPHIN 1 Gm-D5w 50 ml Bag** 1 G/50 ML IVPB IV SCH (10:11)
[2022-05-01] MEDS: Lopressor 25MG Tab PO SCH ×2 (10:11→21:02)
[2022-05-01] MEDS: ECOTRIN 81 MG PO SCH (10:11)
[2022-05-01] MEDS: Zithromax 500 MG/ 250 ML NaCl Premix 500 MG/250 ML IVPB IV SCH (10:11)
[2022-05-01] MEDS: Flomax 0.4 MG PO SCH (10:11)
[2022-05-01] MEDS: Protonix 40MG Tablet PO SCH (10:11)
[2022-05-01] MEDS ORDERED: Miralax Powder 17GM PACKET PO PRN (15:00)
[2022-05-01] MEDS: Miralax Powder 17GM PACKET PO PRN (16:21)
[2022-05-02 05:26] LABS: Absolute Neutrophil Ct (ANC) 10.64 x10^3/uL (1.4-6.9); Basophil (Absolute #) 0.11 x10^3/uL (0-0.4); Eosinophil % 3.1 % (0.00-5.0); Hematocrit 33.7 % (42-50); Hemoglobin 10.8 g/dL (12.5-18.0); Lymphocyte (Absolute #) 3.04 x10^3/uL (1.0-4.6); Lymphocytes % 18.7 % (24.0-44.0); Mean Cell Volume 97.4 fL (78-100); Mean Corpuscular Hemoglobin 31.2 pg (26-32); Mean Platelet Volume 8.9 fL (7.5-11.0); Monocyte (Absolute #) 1.47 x10^3/uL (0.0-1.3); Monocytes % 9.1 % (0.0-12.0); Neutrophil % 65.4 % (36.0-66.0); Platelet Count 289 x10^3/uL (150-450); Red Blood Count 3.46 x10^6/uL (4.1-5.6); Red Cell Distribution Width 15.5 % (11.5-14.0); White Blood Count 16.2 x10^3/uL (4.0-10.5)
[2022-05-02 05:50] LABS: ALBUMIN 3.3 g/dL (3.5-5.0); ANION GAP 11.8 MEQ/L (5-15); BILIRUBIN,TOTAL 0.6 mg/dL (0.2-1.3); Calcium 8.6 mg/dL (8.4-10.2); Creatinine 1 1.38 mg/dL (0.66-1.25); EST GLOMERULAR FILTRATION RATE 51.6 ML/MIN; Potassium 4.5 mmol/L (3.5-5.1); Total Protein 6.6 g/dL (6.3-8.2)
[2022-05-02] MEDS: HUMALOG SQ PRN ×2 (08:18→11:55)
--- NOTE | 2022-05-02 09:04 | PCM.DS ---
Discharge Summary Date of Admission: 04/30/22 16:42 Admitting Physician: MANOLO GALVEZ Consults: Consults on Case 04/30/22 16:46 Consult Pulmonology ROUTINE Primary Care Provider: MANOLO GALVEZ Allergies Allergies amoxicillin Allergy (Severe, Verified 04/30/22 11:06) [facility] Summary - Hospital Course Hospital Course: patient admitted after lap cholecystectomy with Dr Shearer, prolonged course to extubate following surgery. he was find to have minimal infrahilar infiltrate on chest xray, treated for pneumonia. wbc trending down, afebrile and sats are good on room air, tolerating po and requesting to go home. - Vitals & Intake/Output Vital Signs: Vital Signs Temperature 98.4 F 05/02/22 07:38 Pulse Rate 76 05/02/22 07:38 Respiratory Rate 16 05/02/22 07:38 Blood Pressure 157/64 05/02/22 07:38 O2 Sat by Pulse Oximetry 96 05/02/22 07:38 Intake & Output: Intake & Output 04/29/22 04/30/22 05/01/22 05/02/22 11:59 11:59 11:59 11:59 Intake Total 0 0 360 1220 Balance 0 0 360 1220 Weight 91.3 kg 76.6 kg - Lab Result Diagrams: 05/02/22 05:15 05/02/22 05:15 Lab Results-Last 24 Hrs: Lab Results-Last 24 Hours 05/01/22 05/01/22 05/01/22 Range/Units 06:00 11:54 15:49 WBC (4.0-10.5) x10^3/uL RBC (4.1-5.6) x10^6/uL Hgb (12.5-18.0) g/dL Hct (42-50) % MCV (78-100) fL MCH (26-32) pg MCHC (32-36) g/dL RDW (11.5-14.0) % Plt Count (150-450) x10^3/uL MPV (7.5-11.0) fL Gran % (36.0-66.0) % Immature Gran % (Auto) (0.00-0.4) % Nucleat RBC Rel Count (0.00-0.1) % Eos # (Auto) (0-0.5) x10^3/uL Immature Gran # (Auto) (0.00-0.03) x10^3u/L Absolute Lymphs (auto) (1.0-4.6) x10^3/uL Absolute Monos (auto) (0.0-1.3) x10^3/uL Absolute Nucleated RBC (0.00-0.01) x10^3u/L Lymphocytes % (24.0-44.0) % Monocytes % (0.0-12.0) % Eosinophils % (0.00-5.0) % Basophils % (0.0-0.4) % Absolute Granulocytes (1.4-6.9) x10^3/uL Basophils # (0-0.4) x10^3/uL Sodium (137-145) mmol/L Potassium (3.5-5.1) mmol/L Chloride (98-107) mmol/L Carbon Dioxide (22-30) mmol/L Anion Gap (5-15) MEQ/L BUN (9-20) mg/dL Creatinine (0.66-1.25) mg/dL Estimated GFR ML/MIN Glucose (74-106) mg/dL POC Glucometer 264 H 188 H (74 to 106) mg/dL Calcium (8.4-10.2) mg/dL Total Bilirubin (0.2-1.3) mg/dL AST (17-59) U/L ALT (0-50) U/L Alkaline Phosphatase (38-126) U/L Serum Total Protein (6.3-8.2) g/dL Albumin (3.5-5.0) g/dL Procalcitonin 0.267 H (0.030-0.080) ng/mL 05/01/22 05/02/22 05/02/22 Range/Units 20:28 05:15 05:15 WBC 16.2 H (4.0-10.5) x10^3/uL RBC 3.46 L (4.1-5.6) x10^6/uL Hgb 10.8 L (12.5-18.0) g/dL Hct 33.7 L (42-50) % MCV 97.4 (78-100) fL MCH 31.2 (26-32) pg MCHC 32.0 (32-36) g/dL RDW 15.5 H (11.5-14.0) % Plt Count 289 (150-450) x10^3/uL MPV 8.9 (7.5-11.0) fL Gran % 65.4 (36.0-66.0) % Immature Gran % (Auto) 3.0 H (0.00-0.4) % Nucleat RBC Rel Count 0.0 (0.00-0.1) % Eos # (Auto) 0.50 (0-0.5) x10^3/uL Immature Gran # (Auto) 0.48 H (0.00-0.03) x10^3u/L Absolute Lymphs (auto) 3.04 (1.0-4.6) x10^3/uL Absolute Monos (auto) 1.47 H (0.0-1.3) x10^3/uL Absolute Nucleated RBC 0.00 (0.00-0.01) x10^3u/L Lymphocytes % 18.7 L (24.0-44.0) % Monocytes % 9.1 (0.0-12.0) % Eosinophils % 3.1 (0.00-5.0) % Basophils % 0.7 (0.0-0.4) % Absolute Granulocytes 10.64 H (1.4-6.9) x10^3/uL Basophils # 0.11 (0-0.4) x10^3/uL Sodium 135 L (137-145) mmol/L Potassium 4.5 (3.5-5.1) mmol/L Chloride 99 (98-107) mmol/L Carbon Dioxide 29 (22-30) mmol/L Anion Gap 11.8 (5-15) MEQ/L BUN 23 H (9-20) mg/dL Creatinine 1.38 H (0.66-1.25) mg/dL Estimated GFR 51.6 ML/MIN Glucose 241 H (74-106) mg/dL POC Glucometer 216 H (74 to 106) mg/dL Calcium 8.6 (8.4-10.2) mg/dL Total Bilirubin 0.60 (0.2-1.3) mg/dL AST 26 (17-59) U/L ALT 19 (0-50) U/L Alkaline Phosphatase 37 L (38-126) U/L Serum Total Protein 6.6 (6.3-8.2) g/dL Albumin 3.3 L (3.5-5.0) g/dL Procalcitonin (0.030-0.080) ng/mL 05/02/22 Range/Units 07:32 WBC (4.0-10.5) x10^3/uL RBC (4.1-5.6) x10^6/uL Hgb (12.5-18.0) g/dL Hct (42-50) % MCV (78-100) fL MCH (26-32) pg MCHC (32-36) g/dL RDW (11.5-14.0) % Plt Count (150-450) x10^3/uL MPV (7.5-11.0) fL Gran % (36.0-66.0) % Immature Gran % (Auto) (0.00-0.4) % Nucleat RBC Rel Count (0.00-0.1) % Eos # (Auto) (0-0.5) x10^3/uL Immature Gran # (Auto) (0.00-0.03) x10^3u/L Absolute Lymphs (auto) (1.0-4.6) x10^3/uL Absolute Monos (auto) (0.0-1.3) x10^3/uL Absolute Nucleated RBC (0.00-0.01) x10^3u/L Lymphocytes % (24.0-44.0) % Monocytes % (0.0-12.0) % Eosinophils % (0.00-5.0) % Basophils % (0.0-0.4) % Absolute Granulocytes (1.4-6.9) x10^3/uL Basophils # (0-0.4) x10^3/uL Sodium (137-145) mmol/L Potassium (3.5-5.1) mmol/L Chloride (98-107) mmol/L Carbon Dioxide (22-30) mmol/L Anion Gap (5-15) MEQ/L BUN (9-20) mg/dL Creatinine (0.66-1.25) mg/dL Estimated GFR ML/MIN Glucose (74-106) mg/dL POC Glucometer 202 H (74 to 106) mg/dL Calcium (8.4-10.2) mg/dL Total Bilirubin (0.2-1.3) mg/dL AST (17-59) U/L ALT (0-50) U/L Alkaline Phosphatase (38-126) U/L Serum Total Protein (6.3-8.2) g/dL Albumin (3.5-5.0) g/dL Procalcitonin (0.030-0.080) ng/mL Micro Results-Entire Visit: Accuchecks Date 05/02/22 Date 04/30/22 Time 07:37 Time 21:26 - Radiology Exams Ordered Rad Exams-Entire Visit: Radiology Procedures Category Date Time Status CHEST 1 VIEW (PORTABLE) Routine Exams 04/30/22 16:44 Completed CHEST 1 VIEW (PORTABLE) Stat Exams 05/01/22 08:34 Completed - Procedures and Test Procedures and Tests throughout Hospitalization: Therapy Orders & Screens 04/30/22 16:05 BiPap/CPAP STAT Comment: Diagnosis: gallstone one small 04/30/22 16:52 Oxygen Nasal Cannula 3 lpm Comment: Diagnosis: gallstone one small 04/30/22 18:55 EKG ROUTINE Comment: Diagnosis: ACUTE RESP DISTRESS POST OP SURGERY 05/01/22 08:05 EKG NOW Comment: Diagnosis: ACUTE RESP DISTRESS POST OP SURGERY Discharge Exam General Appearance: no apparent distress, alert Respiratory Exam: normal breath sounds, lungs clear, No respiratory distress Cardiovascular Exam: regular rate/rhythm, normal heart sounds Gastrointestinal/Abdomen Exam: soft, No tenderness, No mass Skin Exam: normal color, warm, dry Wound Assessment: Skin/Wound Assessment Wound/Incision Assessment Start: 04/30/22 19:32 Text: Status: Active Freq: Q6H Protocol: Document 05/02/22 08:00 REJI (Rec: 05/02/22 08:36 [id number]) Wound/Incision Assessment Lower Abdomen Wound Assessment Shift Assessment Wound Type Incision Wound Stage Non Pressure Wound Dressing Status Dry & Intact Drainage Amount None Primary Dressing Gauze Pads Secondary Dressing TEGADERM Comment Puncture sites x 4, gauze CDI. Wound Photo Photo Taken No Final Diagnosis/Problem List - Final Discharge Diagnosis/Problem (1) Pneumonia Current Visit: Yes Status: Acute Assessment & Plan: home on po levaquin with f/u next week Code(s): J18.9 - PNEUMONIA, UNSPECIFIED ORGANISM (2) Acute respiratory distress Current Visit: Yes Status: Acute Code(s): R06.03 - ACUTE RESPIRATORY DISTR ESS (3) Prolonged emergence from general anesthesia Current Visit: Yes Status: Acute Code(s): T88.59XA - OTHER COMPLICATIONS OF ANESTHESIA, INITIAL ENCOUNTER (4) S/P cholecystectomy Current Visit: Yes Status: Acute Code(s): Z90.49 - ACQUIRED ABSENCE OF OTHER SPECIFIED PARTS OF DIGESTIVE TRACT (5) Type 2 diabetes mellitus Current Visit: Yes Status: Chronic (6) Coronary artery disease Current Visit: Yes Status: Chronic Code(s): I25.10 - ATHSCL HEART DISEASE OF [place] CORONARY ARTERY W/O ANG PCTRS - Discharge Disposition: Home, Self-Care Condition: Stable Prescriptions: New Hydrocodone/Acetaminophen [Hydrocodone-Acetamin 5-325 mg] 1 tab PO Q4HPRN PRN #20 tablet MDD 6 PRN Reason: Pain levoFLOXacin [Levofloxacin] 500 mg PO DAILY #7 tablet Continue Tamsulosin HCl 0.4 mg [Flomax 0.4 MG] 0.4 mg PO DAILY Semaglutide [Ozempic] 0.5 mg SQ WEEKLY Ondansetron [Ondansetron Odt ] 4 mg PO Q6H PRN PRN Reason: Nausea Omeprazole 20 mg PO DAILY Metoprolol Tartrate 25 mg [Lopressor 25MG Tab] 25 mg PO BID Losartan Potassium [Cozaar] 25 mg PO DAILY Levothyroxine Sodium [Levothyroxine] 125 mcg PO DAILY Insulin Detemir [Levemir] 50 unit SQ BID Isosorbide Mononitrate [Isosorbide Mononitrate ER] 30 mg PO DAILY Insulin Aspart [Insulin Aspart Flexpen] 0 unit SQ UD Hydrocodone/Acetaminophen [Hydrocodone-Acetamin 10-325 mg] 1 each PO Q6HPRN PRN PRN Reason: Pain Finasteride 5 mg [Proscar 5 MG] 5 mg PO DAILY Fenofibrate Nanocrystallized [Tricor] 145 mg PO DAILY Clopidogrel Bisulfate [Clopidogrel] 75 mg PO DAILY Atorvastatin Calcium [Lipitor 40Mg] 40 mg PO DAILY Aspirin [Low Dose Aspirin EC] 81 mg PO DAILY Follow up with: MANOLO GALVEZ MD [Primary Care Provider] - 1 Week
[2022-05-02] MEDS: ECOTRIN 81 MG PO SCH (09:46)
[2022-05-02] MEDS: Flomax 0.4 MG PO SCH (09:46)
[2022-05-02] MEDS: Lopressor 25MG Tab PO SCH (09:46)
[2022-05-02] MEDS: Protonix 40MG Tablet PO SCH (09:47)
[2022-05-02] MEDS: ROCEPHIN 1 Gm-D5w 50 ml Bag** 1 G/50 ML IVPB IV SCH (09:47)
[2022-05-02] MEDS: PLAVIX Tablet PO SCH (09:47)
[2022-05-02] MEDS: Zithromax 500 MG/ 250 ML NaCl Premix 500 MG/250 ML IVPB IV SCH (09:47)
[2022-05-02] MEDS: Miralax Powder 17GM PACKET PO PRN (10:05)
[2022-05-02 11:55] VITALS: BP 146/66; PULSE 75; O2SAT 98
== END 2022-05-02 13:15 | disposition home or self-care (01) ==
LOC: SDC 10:43 → ICU 16:42 → UNDOADMOB 16:42
PROVIDERS: ADMIT Family Medicine; ATTEND Family Medicine
DX: J18.9 Pneumonia, unspecified organism (principal); K80.12 Calculus of gallbladder with acute and chronic cholecystitis without obstruction; R11.2 Nausea with vomiting, unspecified; R06.03 Acute respiratory distress; T88.59XA Other complications of anesthesia, initial encounter; Z90.49 Acquired absence of other specified parts of digestive tract; E11.9 Type 2 diabetes mellitus without complications; I25.10 Atherosclerotic heart disease of native coronary artery without angina pectoris; I10 Essential (primary) hypertension; N40.0 Benign prostatic hyperplasia without lower urinary tract symptoms; R07.9 Chest pain, unspecified; S31.119A Laceration without foreign body of abdominal wall, unspecified quadrant without penetration into peritoneal cavity, initial encounter; D72.829 Elevated white blood cell count, unspecified; Z79.899 Other long term (current) drug therapy; Z20.828 Contact with and (suspected) exposure to other viral communicable diseases
CPT/HCPCS: 0241U; 36415; 47562; 71045; 80048; 80053; 82947; 83036; 83735; 84134; 84145; 84484; 85025; 93005; 93268; 94002; 94762; G0378; 99100; J0330; J0456; J0696; J1100; J1817; J1956; J2370; J2405; J2704; J3010; A9270-GY

== ENCOUNTER 2022-06-04 19:53 | Emergency (ER) | payer MEDICARE, BC ==
--- NOTE | 2022-06-04 20:06 | ERPHSYRPT ---
- History of Present Illness Time Seen by Provider: 06/04/22 20:05 Historian: patient, family Exam Limitations: no limitations Physician History: This is an 89-year-old white male who has had intermittent vomiting for approximately 4 weeks. This patient is a patient of Dr. Galvez. Patient saw Dr. Galvez today and there were no changes to the patient's drug regimen. Patient underwent laparoscopic cholecystectomy on 04/30/2022. Ever since that date patient has had nearly every night nausea, dry heaves and occasionally actual vomiting. It is at that time he also started on Ozempic. That is a side effect potentially of that medication. Patient has not been taking that medication and the last 2 to 3 weeks and still has the occasional symptoms. Patient is on Shilo vix. He has a history of hyperlipidemia, insulin-dependent diabetes, hypothyroidism, hypertension and gastroesophageal reflux disease. Patient denies abdominal pain. He denies chest pain. He has no fever or diarrhea. Patient does have a prescription for antiemetics but has not been taking them regularly. He did take them earlier today and he is actually feeling better at the time of his arrival to the emergency department. Timing/Duration: intermittent, other Severity of Pain-Max: none Severity of Pain-Current: none Modifying Factors: Improves With: vomiting Associated Symptoms: loss of appetite, nausea, vomiting Previous symptoms: same symptoms as today, recently seen, no recent treatment Allergies/Adverse Reactions: amoxicillin Allergy (Severe, Verified 06/04/22 20:23) Hives Home Medications: Aspirin [Low Dose Aspirin EC] 81 mg PO DAILY 04/25/22 [History] Atorvastatin Calcium [Lipitor 40Mg] 40 mg PO DAILY 04/25/22 [History] Clopidogrel Bisulfate [Clopidogrel] 75 mg PO DAILY 04/25/22 [History] Fenofibrate Nanocrystallized [Tricor] 145 mg PO DAILY 04/25/22 [History] Finasteride 5 mg [Proscar 5 MG] 5 mg PO DAILY 04/25/22 [History] Hydrocodone/Acetaminophen [Hydrocodone-Acetamin 10-325 mg] 1 each PO Q6HPRN PRN 04/25/22 [History] Insulin Aspart [Insulin Aspart Flexpen] 0 unit SQ UD 04/25/22 [History] Insulin Detemir [Levemir] 50 unit SQ BID 04/25/22 [History] Isosorbide Mononitrate [Isosorbide Mononitrate ER] 30 mg PO DAILY 04/25/22 [History] Levothyroxine Sodium [Levothyroxine] 125 mcg PO DAILY 04/25/22 [History] Losartan Potassium [Cozaar] 25 mg PO DAILY 04/25/22 [History] Metoprolol Tartrate 25 mg [Lopressor 25MG Tab] 25 mg PO BID 04/25/22 [History] Omeprazole 20 mg PO DAILY 04/25/22 [History] Ondansetron [Ondansetron Odt ] 4 mg PO Q6H PRN 04/25/22 [History] Semaglutide [Ozempic] 0.5 mg SQ WEEKLY 04/25/22 [History] Tamsulosin HCl 0.4 mg [Flomax 0.4 MG] 0.4 mg PO DAILY 04/25/22 [History] Travel Risk - International Travel Have you traveled outside of the country in past 3 weeks: No - Coronavirus Screening Are you exhibiting any of the following symptoms?: No Close contact with a COVID-19 positive Pt in past 14-21 Days: No - Vaccine Status Have you recieved a Covid-19 vaccination: Yes [employer]: [employer] - Vaccination Dates Date of 2cond Vaccination (if applicable): unknown Comment: unsure of month of booster - Review of Systems Constitutional: Weakness Eyes: No Symptoms Ears, Nose, & Throat: No Symptoms Respiratory: No Symptoms Cardiac: No Symptoms Abdominal/Gastrointestinal: Nausea, Vomiting, No Abdominal Pain, No Diarrhea, No Constipation Genitourinary Symptoms: No Symptoms Musculoskeletal: No Symptoms Skin: No Symptoms Neurological: No Symptoms Psychological: No Symptoms Endocrine: No Symptoms Hematologic/Lymphatic: No Symptoms Immunological/Allergic: No Symptoms - Past Medical History Pertinent Past Medical History: Yes Neurological History: No Pertinent History ENT History: No Pertinent History Cardiac History: High Cholesterol, Hypertension, Other Respiratory History: No Pertinent History Endocrine Medical History: Diabetes Type II, Hypothyroidism Musculoskeletal History: No Pertinent History GI Medical History: GERD History: No Pertinent History Psycho-Social History: No Pertinent History Male Reproductive Disorders: No Pertinent History Other Medical History: pacemaker - Past Surgical History Past Surgical History: Yes Neuro Surgical History: No Pertinent History Cardiac: Cardiac Catheterization, Pacemaker Respiratory: No Pertinent History Gastrointestinal: No Pertinent History Genitourinary: No Pertinent History Musculoskeletal: Other Male Surgical History: No Pertinent History Other Surgical History: back surgery - Social History Smoking Status: Former smoker Exposure to second hand smoke: No Drug Use: none - Nursing Vital Signs Nursing Vital Signs: Initial Vital Signs Temperature 98.5 F 06/04/22 20:04 Pulse Rate 81 06/04/22 20:04 Respiratory Rate 20 06/04/22 20:04 Blood Pressure 186/83 06/04/22 20:04 O2 Sat by Pulse Oximetry 95 06/04/22 20:04 Pain Scale Pain Intensity 0 - Physical Exam General Appearance: no apparent distress, alert, anxiety Eye Exam: PERRL/EOMI, eyes nml inspection Ears, Nose, Throat Exam: normal ENT inspection, moist mucous membranes Neck Exam: normal inspection, non-tender, supple, full range of motion Respiratory Exam: normal breath sounds, lungs clear, airway intact, No chest tenderness, No respiratory distress Cardiovascular Exam: regular rate/rhythm, normal heart sounds, normal peripheral pulses Gastrointestinal/Abdomen Exam: soft, normal bowel sounds, No tenderness Rectal Exam: not done Back Exam: normal inspection, normal range of motion, No CVA tenderness, No vertebral tenderness Extremity Exam: normal inspection, normal range of motion, pelvis stable Neurologic Exam: alert, oriented x 3, cooperative, medication specialist II-XII nml as tested, normal mood/affect, nml cerebellar function, nml station & gait, sensation nml Skin Exam: normal color, warm, dry Lymphatic Exam: No adenopathy SpO2 Interpretation: normal O2 Delivery: Room Air - Course Nursing assessment & vital signs reviewed: Yes Ordered Tests: Active Orders 24 hr Category Date Time Status IV Insertion STAT Care 06/04/22 20:14 Active ABDOMEN AND PELVIS W/0 CONTRAS [CT] Stat Exams 06/04/22 20:42 Taken AMYLASE Stat Lab 06/04/22 20:40 Completed BLOOD CULTURE Stat Lab 06/04/22 20:40 Received CBC W DIFF Stat Lab 06/04/22 20:14 Completed CMP Stat Lab 06/04/22 20:40 Completed LIPASE Stat Lab 06/04/22 20:40 Completed Lactic Acid Stat Lab 06/04/22 20:40 Completed UA W/RFX CULTURE Stat Lab 06/04/22 Completed Medication Summary Generic Name Dose Route Start Last Admin Trade Name Freq PRN Reason Stop Dose Admin Sodium Chloride 1,000 mls @ 250 mls/hr 06/04/22 20:15 06/04/22 20:30 Sodium Chloride 0.9% 1000 Ml IV 07/04/22 20:14 250 mls/hr .Q4H SALAS Administration Discontinued Medications Generic Name Dose Route Start Last Admin Trade Name Birdq PRN Reason Stop Dose Admin Ondansetron HCl 4 mg 06/04/22 20:14 06/04/22 20:30 Ondansetron Hcl 4 Mg/2 Ml Vial IV 06/04/22 20:15 4 mg STAT ONE Administration Ondansetron HCl Confirm 06/04/22 20:27 Ondansetron Hcl 4 Mg/2 Ml Vial Administered 06/04/22 20:28 Dose 4 mg .ROUTE .STK-MED ONE Lab/Rad Data: Laboratory Result Diagrams 06/04/22 20:14 06/04/22 20:40 Laboratory Results 06/04/22 06/04/22 06/04/22 Range/Units Unknown 20:45 20:40 WBC (4.0-10.5) x10^3/uL RBC (4.1-5.6) x10^6/uL Hgb (12.5-18.0) g/dL Hct (42-50) % MCV (78-100) fL MCH (26-32) pg MCHC (32-36) g/dL RDW (11.5-14.0) % Plt Count (150-450) x10^3/uL MPV (7.5-11.0) fL Gran % (36.0-66.0) % Immature Gran % (Auto) (0.00-0.4) % Nucleat RBC Rel Count (0.00-0.1) % Eos # (Auto) (0-0.5) x10^3/uL Immature Gran # (Auto) (0.00-0.03) x10^3u/L Absolute Lymphs (auto) (1.0-4.6) x10^3/uL Absolute Monos (auto) (0.0-1.3) x10^3/uL Absolute Nucleated RBC (0.00-0.01) x10^3u/L Lymphocytes % (24.0-44.0) % Monocytes % (0.0-12.0) % Eosinophils % (0.00-5.0) % Basophils % (0.0-0.4) % Absolute Granulocytes (1.4-6.9) x10^3/uL Basophils # (0-0.4) x10^3/uL Sodium 134 L (137-145) mmol/L Potassium 4.3 (3.5-5.1) mmol/L Chloride 103 (98-107) mmol/L Carbon Dioxide 23 (22-30) mmol/L Anion Gap 12.3 (5-15) MEQ/L BUN 22 H (9-20) mg/dL Creatinine 1.22 (0.66-1.25) mg/dL Estimated GFR 59.4 ML/MIN Glucose 196 H (74-106) mg/dL Lactic Acid (0.4-2.0) Calcium 8.8 (8.4-10.2) mg/dL Total Bilirubin 0.50 (0.2-1.3) mg/dL AST 30 (17-59) U/L ALT 17 (0-50) U/L Alkaline Phosphatase 54 (38-126) U/L Serum Total Protein 7.3 (6.3-8.2) g/dL Albumin 3.5 (3.5-5.0) g/dL Amylase 56 (30-110) U/L Lipase 16 L (23-300) U/L Urinalys Dipstick Clnc MAIN LAB Urine Color YELLOW (YELLOW) Urine Appearance CLEAR (CLEAR) Urine pH 6.5 (5-6) Ur Specific [place] 1.020 (1.005-1.025) POC Urine Protein Conf NEGATIVE (Negative) Urine Ketones NEGATIVE (NEGATIVE) Urine Nitrite NEGATIVE (NEGATIVE) Urine Bilirubin NEGATIVE (NEGATIVE) Urine Urobilinogen 0.2 (0-1) mg/dL Urine Leukocytes NEGATIVE (NEGATIVE) Urine WBC (Auto) NONE (0-5) /HPF Urine RBC (Auto) NONE (0-2) /HPF U Epithel Cells (Auto) NONE (FEW) /HPF Urine Bacteria (Auto) RARE (NEGATIVE) /HPF Urine RBC NEGATIVE (0-5) See/ul Urine Mucus (Auto) SLIGHT (NEGATIVE) /HPF Ur Culture Indicated? NO Urine Glucose 100 (NEGATIVE) mg/dL Influenza Type A Ag NEGATIVE (NEGATIVE) Influenza Type B Ag NEGATIVE (NEGATIVE) RSV (PCR) NEGATIVE (Negative) SARS-CoV-2 (PCR) NEGATIVE (NEGATIVE) 06/04/22 06/04/22 Range/Units 20:40 20:14 WBC 13.9 H (4.0-10.5) x10^3/uL RBC 3.42 L (4.1-5.6) x10^6/uL Hgb 10.7 L (12.5-18.0) g/dL Hct 33.3 L (42-50) % MCV 97.4 (78-100) fL MCH 31.3 (26-32) pg MCHC 32.1 (32-36) g/dL RDW 15.5 H (11.5-14.0) % Plt Count 286 (150-450) x10^3/uL MPV 9.0 (7.5-11.0) fL Gran % 65.6 (36.0-66.0) % Immature Gran % (Auto) 2.5 H (0.00-0.4) % Nucleat RBC Rel Count 0.0 (0.00-0.1) % Eos # (Auto) 0.48 (0-0.5) x10^3/uL Immature Gran # (Auto) 0.35 H (0.00-0.03) x10^3u/L Absolute Lymphs (auto) 2.58 (1.0-4.6) x10^3/uL Absolute Monos (auto) 1.26 (0.0-1.3) x10^3/uL Absolute Nucleated RBC 0.00 (0.00-0.01) x10^3u/L Lymphocytes % 18.6 L (24.0-44.0) % Monocytes % 9.1 (0.0-12.0) % Eosinophils % 3.5 (0.00-5.0) % Basophils % 0.7 (0.0-0.4) % Absolute Granulocytes 9.11 H (1.4-6.9) x10^3/uL Basophils # 0.10 (0-0.4) x10^3/uL Sodium (137-145) mmol/L Potassium (3.5-5.1) mmol/L Chloride (98-107) mmol/L Carbon Dioxide (22-30) mmol/L Anion Gap (5-15) MEQ/L BUN (9-20) mg/dL Creatinine (0.66-1.25) mg/dL Estimated GFR ML/MIN Glucose (74-106) mg/dL Lactic Acid 1.0 (0.4-2.0) Calcium (8.4-10.2) mg/dL Total Bilirubin (0.2-1.3) mg/dL AST (17-59) U/L ALT (0-50) U/L Alkaline Phosphatase (38-126) U/L Serum Total Protein (6.3-8.2) g/dL Albumin (3.5-5.0) g/dL Amylase (30-110) U/L Lipase (23-300) U/L Urinalys Dipstick Clnc Urine Color (YELLOW) Urine Appearance (CLEAR) Urine pH (5-6) Ur Specific [place] (1.005-1.025) POC Urine Protein Conf (Negative) Urine Ketones (NEGATIVE) Urine Nitrite (NEGATIVE) Urine Bilirubin (NEGATIVE) Urine Urobilinogen (0-1) mg/dL Urine Leukocytes (NEGATIVE) Urine WBC (Auto) (0-5) /HPF Urine RBC (Auto) (0-2) /HPF U Epithel Cells (Auto) (FEW) /HPF Urine Bacteria (Auto) (NEGATIVE) /HPF Urine RBC (0-5) See/ul Urine Mucus (Auto) (NEGATIVE) /HPF Ur Culture Indicated? Urine Glucose (NEGATIVE) mg/dL Influenza Type A Ag (NEGATIVE) Influenza Type B Ag (NEGATIVE) RSV (PCR) (Negative) SARS-CoV-2 (PCR) (NEGATIVE) - Progress Progress: improved, re-examined Progress Note: 06/04/22 23:34 CAT scan of the abdomen and pelvis without shows no acute intra abdominal or intrapelvic process Counseled pt/family regarding: lab results, diagnosis, need for follow-up - Departure Departure Disposition: Home Clinical Impression: Intermittent vomiting Condition: Stable Critical Care Time: No Referrals: MANOLO GALVEZ MD [Primary Care Provider] - Follow up/PCP as directed Additional Instructions: Drink plenty of fluids. Take your antinausea medicine every night as discussed. Follow-up with your primary care physician and if needed, obtain a referral to a tax investigator for further evaluation and management.
[2022-06-04] MEDS ORDERED: Zofran 4 MG/2 ML VIAL IV ONE (20:14)
[2022-06-04] MEDS ORDERED: Sodium Chloride 0.9% 1000 ML 1,000 ML IV SCH (20:15)
[2022-06-04] MEDS ORDERED: Zofran 4 MG/2 ML VIAL ONE (20:27)
[2022-06-04] MEDS ORDERED: Sodium Chloride 0.9% 1000 ML 1,000 ML ONE (20:27)
[2022-06-04 20:49] LABS: Absolute Neutrophil Ct (ANC) 9.11 x10^3/uL (1.4-6.9); Eosinophil % 3.5 % (0.00-5.0); Eosinophil (Absolute #) 0.48 x10^3/uL (0-0.5); Hematocrit 33.3 % (42-50); Hemoglobin 10.7 g/dL (12.5-18.0); Lymphocyte (Absolute #) 2.58 x10^3/uL (1.0-4.6); Lymphocytes % 18.6 % (24.0-44.0); Mean Cell Volume 97.4 fL (78-100); Mean Corpuscular Hemoglobin 31.3 pg (26-32); Mean Corpuscular Hgb Concent. 32.1 g/dL (32-36); Monocyte (Absolute #) 1.26 x10^3/uL (0.0-1.3); Monocytes % 9.1 % (0.0-12.0); Neutrophil % 65.6 % (36.0-66.0); Platelet Count 286 x10^3/uL (150-450); Red Blood Count 3.42 x10^6/uL (4.1-5.6); Red Cell Distribution Width 15.5 % (11.5-14.0); White Blood Count 13.9 x10^3/uL (4.0-10.5)
[2022-06-04 20:54] LABS: Bacteria RARE /HPF (NEGATIVE); Mucus SLIGHT /HPF (NEGATIVE)
[2022-06-04 20:55] LABS: Appearance CLEAR (CLEAR); Bilirubin NEGATIVE (NEGATIVE); Glucose 100 mg/dL (NEGATIVE); Ketones NEGATIVE (NEGATIVE); Nitrite NEGATIVE (NEGATIVE); Ph 6.5 (5-6); Protein,Urine Dip NEGATIVE (Negative); RBC NEGATIVE Ery/ul (0-5); Urine Cultured Indicated? NO; Urobilinogen 0.2 mg/dL (0-1)
[2022-06-04 20:56] LABS: Dipstick done @ ? MAIN LAB
[2022-06-04 21:01] LABS: ALBUMIN 3.5 g/dL (3.5-5.0); ANION GAP 12.3 MEQ/L (5-15); BILIRUBIN,TOTAL 0.5 mg/dL (0.2-1.3); Calcium 8.8 mg/dL (8.4-10.2); Creatinine 1 1.22 mg/dL (0.66-1.25); EST GLOMERULAR FILTRATION RATE 59.4 ML/MIN; Potassium 4.3 mmol/L (3.5-5.1); Total Protein 7.3 g/dL (6.3-8.2)
[2022-06-04 21:28] LABS: INFLUENZA A NEGATIVE (NEGATIVE); INFLUENZA B NEGATIVE (NEGATIVE); RESPIRATORY SYNCTIAL VIRUS NEGATIVE (Negative); SARS-CoV-2 Xpert Express NEGATIVE (NEGATIVE)
[2022-06-05] VITALS: BP 157/70; PULSE 87; O2SAT 96
--- NOTE | 2022-06-05 09:17 | XRAY ---
Indication: Intractable nausea and vomiting. Multiple contiguous axial images obtained through the abdomen and pelvis without contrast. Comparison: None Lung bases demonstrates scattered subsegmental atelectasis/scarring. No infiltrate or effusion. Heart not enlarged. Small hiatal hernia. Right lower back epidural stimulator device/leads and posterior L4-L5 fusion hardware produces beam artifact. Noncontrasted stomach and bowel loops appear nonobstructed with normal appendix. There is moderate diffuse scattered colonic fecal debris. Also scattered descending and sigmoid diverticulosis without diverticulitis. Proximal sigmoid colon demonstrates wall thickening probably scar tissue though underlying mass not completely excluded. Previous cholecystectomy. No free fluid/air. Remaining liver, pancreas, spleen, adrenal glands, kidneys, ureters, and bladder are unremarkable for noncontrast exam. Heavy scattered aortoiliac calcifications without AAA. Osseous structures intact with osteopenia, moderate multilevel thoracolumbar degenerative spondylosis, and mild bilateral hip degenerative arthropathy. Abdominal wall demonstrates diffuse cutaneous/subcutaneous induration presumed inflammatory/infectious. Impression: 1. Diffuse fecal stasis. 2. Scattered descending and sigmoid diverticulosis. Proximal sigmoid bowel wall thickening probably scarring from chronic diverticulitis. Underlying mass not completely excluded. 3. Abdominal wall cutaneous/subcutaneous kidneys induration presumed inflammatory/infectious. No walled off fluid collection or emphysema. 4. Chronic findings including small hiatal hernia, arteriosclerotic disease, and chronic bony findings.
== END 2022-06-05 00:10 | disposition home or self-care (01) ==
LOC: ED 19:53
DX: R11.2 Nausea with vomiting, unspecified (principal); I10 Essential (primary) hypertension; E78.5 Hyperlipidemia, unspecified; E11.9 Type 2 diabetes mellitus without complications; Z79.02 Long term (current) use of antithrombotics/antiplatelets; Z79.4 Long term (current) use of insulin; Z79.899 Other long term (current) drug therapy; Z79.891 Long term (current) use of opiate analgesic; Z20.828 Contact with and (suspected) exposure to other viral communicable diseases
CPT/HCPCS: 0241U; 36000; 36415; 74176; 80053; 81015; 82150; 83605; 83690; 85025; 87040; 96374; 99284; J2405